=== PATIENT | male | born 1935 | race Caucasian/White ===

== ENCOUNTER 2019-10-23 15:08 | Inpatient (IN) | payer OTHER ==
--- NOTE | 2019-10-23 16:33 | NUR ---
PLACED ON NRB AT THIS TIME
[2019-10-23 16:57] LABS: HEMATOCRIT 31.4 % (38.2-49.6); HEMOGLOBIN 10.2 g/dL (14.0-18.0); LYMPHOCYTES # (AUTO) 0.4 (1.0-3.2); LYMPHOCYTES % 10.9 % (18.0-39.1); MEAN CORPUSCULAR HEMOGLOBIN 31.9 pg (28-32); MEAN CORPUSCULAR HGB CONC 32.5 g/dL (31-35); MEAN CORPUSCULAR VOLUME 98.1 fL (81-99); MONOCYTES # (AUTO) 0.2 (0.2-0.8); MONOCYTES % 4.8 % (4.4-11.3); NEUTROPHILS # (AUTO) 2.8 (2.1-6.9); NEUTROPHILS % 83.7 % (38.7-80.0); RED CELL DISTRIBUTION WIDTH 16.6 % (11.7-14.4)
[2019-10-23 16:59] LABS: PARTIAL THROMBOPLASTIN TIME 24.7 seconds (23.8-35.5)
[2019-10-23 17:02] LABS: INR 1.19; PROTHROMBIN TIME 15.8 seconds (11.9-14.5)
[2019-10-23 17:05] LABS: PLATELET COUNT 38 x10e3/uL (140-360)
[2019-10-23 17:09] LABS: ALBUMIN 3.4 g/dL (3.5-5.0); ALBUMIN/GLOBULIN RATIO 0.8 (0.8-2.0); ANION GAP 20.3 mmol/L (8-16); CALCIUM 9.2 mg/dL (8.4-10.2); CREATININE, SERUM 2.42 mg/dL (0.72-1.25); POTASSIUM 4.3 mmol/L (3.5-5.1)
--- NOTE | 2019-10-23 17:10 | Emergency Department Note ---
History of Present Illnes History of Present Illness Chief Complaint: Respiratory History of Present Illness This is a 84 year old male arrives to the ED with complaints of short ness of breath for several days, patient states he cannot speak in full sentences, also complaining of nausea and vomiting. . Historian: Patient Arrival Mode: Car Onset (how long ago): day(s) Severity: mild Onset quality: gradual Progression: worsening Chronicity: new Relieving factors: none Exacerbating factors: none Treatments prior to arrival: none Past Medical/Family History Physician Review I have reviewed the patient's past medical and family history. Any updates have been documented here. Past Medical History Recent Fever: No Clinical Suspicion of Infectio: Yes New/Unexplained Change in Ment: No Past Medical History: Hypertension Other Surgery: eyes rebuilt shoulder hip x 2 Social History Smoking Cessation: Never Smoker Counseling Performed: No Alcohol Use: None Any Illegal Drug Use: No Physically hurt or threatened: No Other Any Pre-Existing Lines (PICC,: No Review of Systems Review of Systems Constitutional: Reports as per HPI, Reports fever, Reports malaise, Reports weakness EENTM: Reports no symptoms Cardiovascular: Reports no symptoms Respiratory: Reports as per HPI, Reports cough Gastrointestinal: Reports no symptoms Genitourinary: Reports no symptoms Musculoskeletal: Reports no symptoms Integumentary: Reports no symptoms Neurological: Reports no symptoms Psychological: Reports no symptoms Endocrine: Reports no symptoms Hematological/Lymphatic: Reports no symptoms Review of other systems: All other systems negative Physical Exam Related Data Allergies: Coded Allergies: Penicillins (Verified Allergy, Unknown, 10/23/19) Triage Vital Signs Vital Signs Date Time Temp Pulse Resp B/P (MAP) Pulse Ox O2 Delivery O2 Flow Rate FiO2 10/23/19 15:41 98.2 104 28 98/64 91 Room Air Vital signs reviewed: Yes Physical Exam CONSTITUTIONAL Constitutional: Present well-developed, Present well-nourished, Present ill appearing HENT HENT: Present normocephalic, Present atraumatic, Present oropharynx clear/moist, Present nose normal HENT L/R: Present left ext ear normal, Present right ext ear normal EYES Eyes: Reports PERRL, Reports conjunctivae normal NECK Neck: Present ROM normal PULMONARY Pulmonary: Present respiratory distress CARDIOVASCULAR Cardiovascular: Present regular rhythm, Present heart sounds normal, Present capillary refill normal, Present normal rate GASTROINTESTINAL Abdominal: Present soft, Present nontender, Present bowel sounds normal GENITOURINARY Genitourinary: Present exam deferred SKIN Skin: Present warm, Present dry MUSCULOSKELETAL Musculoskeletal: Present ROM normal NEUROLOGICAL Neurological: Present alert, Present oriented x 3, Present no gross motor or sensory deficits PSYCHOLOGICAL Psychological: Present mood/affect normal, Present judgement normal Results Laboratory Laboratory Laboratory Tests Test 10/23/19 15:53 Lab results reviewed: Yes Laboratory comments Laboratory Tests Test 10/24/19 06:23 10/24/19 05:48 10/24/19 05:20 10/24/19 00:40 Urine Color Yellow (YELLOW) Urine Clarity Clear (CLEAR) Urine pH 5 (5 - 7) Urine Specific [place] 1.025 (1.010-1.025) Urine Protein 2+ (NEGATIVE) Urine Glucose (UA) Negative (NEGATIVE) Urine Ketones Trace (NEGATIVE) Urine Blood Negative (NEGATIVE) Urine Nitrite Negative (NEGATIVE) Urine Bilirubin Negative (NEGATIVE) Urine Urobilinogen 0.2 mg/dL (0.2 - 1) Urine Leukocyte Esterase Negative (NEGATIVE) Urine RBC 0-5 /HPF (0-5) Urine WBC 0-5 /HPF (0-5) Urine Epithelial Cells Few /LPF (NONE) Urine Transitional Epithelial Cells Rare (NONE) Urine Amorphous Sediment Few (FEW) Urine Bacteria Moderate /HPF (NONE) Urine Hyaline Casts 2-5 (0-1) White Blood Count 4.25 x10e3/uL (4.8-10.8) Red Blood Count 3.15 x10e6/uL (4.3-5.7) Hemoglobin 10.3 g/dL (14.0-18.0) Hematocrit 31.1 % (38.2-49.6) Mean Corpuscular Volume 98.7 fL (81-99) Mean Corpuscular Hemoglobin 32.7 pg (28-32) Mean Corpuscular Hemoglobin Concent 33.1 g/dL (31-35) Red Cell Distribution Width 16.4 % (11.7-14.4) Platelet Count 41 x10e3/uL (140-360) Neutrophils (%) (Auto) 65.9 % (38.7-80.0) Lymphocytes (%) (Auto) 28.0 % (18.0-39.1) Monocytes (%) (Auto) 4.7 % (4.4-11.3) Eosinophils (%) (Auto) 0.0 % (0.0-6.0) Basophils (%) (Auto) 0.2 % (0.0-1.0) Neutrophils # (Auto) 2.8 (2.1-6.9) Lymphocytes # (Auto) 1.2 (1.0-3.2) Monocytes # (Auto) 0.2 (0.2-0.8) Eosinophils # (Auto) 0.0 (0.0-0.4) Basophils # (Auto) 0.0 (0.0-0.1) Absolute Immature Granulocyte (auto 0.05 x10e3/uL (0-0.1) Platelet Estimate Markedly decreased Platelet Morphology Comment Normal Polychromasia Few Anisocytosis Slight Tear Drop Cells Few Ovalocytes Moderate Schistocytes Rare Red Cell Morphology Comment Abnormal Sodium Level 143 mmol/L (136-145) Potassium Level 4.4 mmol/L (3.5-5.1) Chloride Level 111 mmol/L (98-107) Carbon Dioxide Level 16 mmol/L (22-29) Anion Gap 20.4 mmol/L (8-16) Blood Urea Nitrogen 53 mg/dL (7-26) Creatinine 2.77 mg/dL (0.72-1.25) Estimat Glomerular Filtration Rate 22 ML/MIN (60-) BUN/Creatinine Ratio 19 (6-25) Glucose Level 109 mg/dL (74-118) Calcium Level 8.9 mg/dL (8.4-10.2) Total Bilirubin 1.4 mg/dL (0.2-1.2) Aspartate Amino Transf (AST/SGOT) 200 IU/L (5-34) Alanine Aminotransferase (ALT/SGPT) 59 IU/L (0-55) Alkaline Phosphatase 59 IU/L (40-150) Total Protein 7.3 g/dL (6.5-8.1) Albumin 3.3 g/dL (3.5-5.0) Globulin 4.0 g/dL (2.3-3.5) Albumin/Globulin Ratio 0.8 (0.8-2.0) Triglycerides Level 65 MG/DL (0-149) Cholesterol Level 116 MD/DL (0-199) LDL Cholesterol 62 MG/DL (60-130) HDL Cholesterol 41 MG/DL (40-60) Cholesterol/HDL Ratio 2.8 (3.9-4.7) Arterial Blood pH 7.48 (7.35-7.45) Arterial Blood Partial Pressure CO2 21 mmHg (35-45) Arterial Blood Partial Pressure O2 49 mmHg (80-105) Arterial Blood HCO3 15 mmol/L (22-26) Arterial Blood Total CO2 16 Arterial Blood Oxygen Saturation 88.0 % (95-98) Arterial Blood Base Excess -8.0 mmol/L (-2 - 3) FiO2 100 % Creatine Kinase 1012 IU/L (30-200) Creatine Kinase MB 86.40 ng/mL (0-5.0) Troponin I 76.338 ng/mL (0-0.300) Imaging Imaging results reviewed: Yes Procedures 12 Lead ECG Interpretation ECG Interpretation : ECG: ECG 1 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 Patient admitted given his need for supplemental oxygen, noted to have thrombocytopenia, per patient this is an old finding. Patient also noted to have marked elevated troponin, EKG does not show any ST elevations, cardiology consult did for further workup and management. Patient required admission to ICU for closer monitoring. Assessment & Plan Final Impression: (1) Acute respiratory failure due to COVID-19 (2) NSTEMI (non-ST elevated myocardial infarction) Depart Disposition: ADMITTED Last Vital Signs Date Time Temp Pulse Resp B/P (MAP) Pulse Ox O2 Delivery O2 Flow Rate FiO2 10/23/19 16:41 97.8 102 21 93/66 95 Non-Rebreather MIGUEL BOYD, Oct 23, 2019 17:10
[2019-10-23 17:17] LABS: CREATINE KINASE MB 115.9 ng/mL (0-5.0)
--- NOTE | 2019-10-23 17:36 | Diagnostic Imaging Report ---
EXAMINATION: CHEST SINGLE (PORTABLE) INDICATION: Shortness of breath. COMPARISON: None FINDINGS: TUBES and LINES: None. LUNGS: There is prominent interstitial lung markings throughout the lungs particularly at the bases and superimposed bibasilar hazy opacification. PLEURA: There is probable small bilateral pleural effusion. HEART AND MEDIASTINUM: The heart is enlarged. The thoracic aortic arch appears tortuous and ectatic with atherosclerotic calcification. BONES AND SOFT TISSUES: No acute osseous lesion. Suture anchors are seen in the left humeral head. Soft tissues are unremarkable. UPPER ABDOMEN: No free air under the diaphragm. IMPRESSION: 1. Cardiomegaly with interstitial pulmonary edema. Superimposed infection in the lung bases cannot be excluded. 2. Tortuous and ectatic thoracic aorta with atherosclerotic calcification. Signed by: Bernabe Mace MD on 10/23/2019 5:33 PM
[2019-10-23] MEDS ORDERED: ASPIRIN 81 MG CHEW TAB PO ONE (18:00)
[2019-10-23] MEDS: FUROSEMIDE INJ 10 MG/ML 4 ML VIAL IV SCH (18:41)
[2019-10-23] MEDS ORDERED: ENOXAPARIN SOD INJ 60 MG/0.6 ML SYR SC NR ×2 (19:00→20:30)
--- NOTE | 2019-10-23 23:33 | Consultation ---
DATE OF CONSULTATION: Cardiology Consultation CHIEF COMPLAINT: The patient is an 84-year-old with shortness of breath and chest tightness. HISTORY OF PRESENT ILLNESS: The patient is an 84-year-old, who reported chest pain several days ago and since then, he has been short of breath. The shortness of breath has been getting worse. The patient has had no fevers, no nausea, no vomiting, no abdominal pain. PAST MEDICAL HISTORY: Significant for: 1. Total hip replacement. 2. Shoulder surgery. 3. Hypertension. SOCIAL HISTORY: The patient never smoked. The patient does not drink. FAMILY HISTORY: There is a known family history of hypertension and heart disease. PHYSICAL EXAMINATION: GENERAL: The patient is an older male, in no obvious distress. VITAL SIGNS: Included temperature of 97.8, pulse of 102, blood pressure was 100/60. HEAD, EARS, EYES, NOSE, AND THROAT: The patient's cranium was normocephalic and atraumatic. Extraocular muscles were intact. Sclerae were anicteric. Pupils were equal, round, and reactive to light. There is no pallor or cyanosis of the oral mucosa. There is no erythema or edema of the throat. NECK: Supple. No jugular venous distention. No carotid bruits. CHEST: Demonstrated rales and rhonchi bilaterally. CARDIAC: Demonstrated normal S1 and S2 with a short 2/6 systolic murmur. ABDOMEN: Demonstrated good bowel sounds. No tenderness and no masses. EXTREMITIES: No clubbing, no cyanosis, and no edema. NEUROLOGIC: The patient was alert and oriented x3. Cranial nerves II through XII were intact. Motor strength was +5/+5 in all limbs. IMAGING STUDIES: The patient's EKG demonstrated atrial flutter with 2:1 block and anterior wall myocardial infarction of undetermined age. IMPRESSION: The patient is an 84-year-old with new onset congestive heart failure and myocardial infarction. The patient has a troponin level of 33, consistent with recent myocardial infarction within the last several days. RECOMMENDATIONS: Are as follows: 1. The patient will need to be diuresed with IV Lasix. 2. The patient will need to be started on beta-blockers and KENDRICK inhibitors. 3. The patient will be anticoagulated with Lovenox. 4. An echocardiogram with Doppler has been ordered. 5. The patient will require left heart catheterization. MD OMAR Garcia/MARISA /[id number] cc: Marty Griffin MD
[2019-10-24] VITALS (13 sets, daily range): BP systolic 80–108; BP diastolic 46–69
--- NOTE | 2019-10-24 00:52 | NUR ---
Elias pineda in ED - 10/24/19 at 0057 by CHAITANYA REPORT RECIEVED AT THIS MOMENT FROM JUHI JULES-ASSUMED FULL CARE OF PATIENT
--- NOTE | 2019-10-24 00:58 | NUR ---
REPORT RECIEVED FROM JUHI IN FULL AT THIS MOMENT.
[2019-10-24 01:26] LABS: CREATINE KINASE MB 86.4 ng/mL (0-5.0)
--- NOTE | 2019-10-24 01:43 | NUR ---
ZULEYMA LASSITER RN NOTIFIED OF TROPONIN AND PATIENTS CONDITION, NO NEW ORDERS AT THIS TIME.
--- NOTE | 2019-10-24 05:04 | NUR ---
NIKKI HERMOSILLO MD NOTIFIED OF DECREASING O2 SATURATION, ABG WAS ORDERED ALONG WITH VAPOTHERM
[2019-10-24 06:01] LABS: BASOPHILS % 0.2 % (0.0-1.0); HEMATOCRIT 31.1 % (38.2-49.6); HEMOGLOBIN 10.3 g/dL (14.0-18.0); LYMPHOCYTES # (AUTO) 1.2 (1.0-3.2); MEAN CORPUSCULAR HEMOGLOBIN 32.7 pg (28-32); MEAN CORPUSCULAR HGB CONC 33.1 g/dL (31-35); MEAN CORPUSCULAR VOLUME 98.7 fL (81-99); MONOCYTES # (AUTO) 0.2 (0.2-0.8); MONOCYTES % 4.7 % (4.4-11.3); NEUTROPHILS # (AUTO) 2.8 (2.1-6.9); NEUTROPHILS % 65.9 % (38.7-80.0); RED BLOOD COUNT 3.15 x10e6/uL (4.3-5.7); RED CELL DISTRIBUTION WIDTH 16.4 % (11.7-14.4)
[2019-10-24 06:21] LABS: PLATELET COUNT 41 x10e3/uL (140-360)
[2019-10-24 06:22] LABS: ABG PCO2 21 mmHg (35-45); ABG PH 7.48 (7.35-7.45)
[2019-10-24 06:23] LABS: ABG HCO3 15 mmol/L (22-26); ABG PO2 49 mmHg (80-105); ABG TCO2 16
[2019-10-24 06:28] LABS: ALBUMIN 3.3 g/dL (3.5-5.0); ALBUMIN/GLOBULIN RATIO 0.8 (0.8-2.0); ANION GAP 20.4 mmol/L (8-16); CALCIUM 8.9 mg/dL (8.4-10.2); CREATININE, SERUM 2.77 mg/dL (0.72-1.25); POTASSIUM 4.4 mmol/L (3.5-5.1)
[2019-10-24 06:42] LABS: BILIRUBIN,URINE NEGATIVE (NEGATIVE); CLARITY,URINE CLEAR (CLEAR); COLOR,URINE YELLOW (YELLOW); KETONES,URINE TRACE (NEGATIVE); LEUKOCYTE ESTERASE ,URINE NEGATIVE (NEGATIVE); NITRITE,URINE NEGATIVE (NEGATIVE); PROTEIN,URINE DIPSTICK 2+ (NEGATIVE); URINE UROBILINOGEN 0.2 mg/dL (0.2 - 1)
--- NOTE | 2019-10-24 06:51 | NUR ---
DR ESPINAL INFORMED OF CONSULT
[2019-10-24 06:52] LABS: AMORPHOUS SEDIMENT,URINE FEW (FEW); BACTERIA,URINE MODERATE /HPF; EPITHELIAL CELLS,URINE FEW /LPF; RBC,URINE 0-5 /HPF (0-5); TRANSITIONAL EPI CELLS,URINE RARE; WBC,URINE (MAN) 0-5 /HPF (0-5)
[2019-10-24 06:54] LABS: CHOL/HDL RATIO 2.8 (3.9-4.7)
[2019-10-24 06:55] LABS: ANISOCYTOSIS SLIGHT
[2019-10-24 06:56] LABS: PLATELET ESTIMATE MARKEDLY DECREASED; PLATELET MORPHOLOGY COMMENT NORMAL; RBC MORPHOLOGY COMMENT ABNORMAL
[2019-10-24 06:57] LABS: OVALOCYTES MODERATE
[2019-10-24 06:58] LABS: TEAR DROP CELLS FEW
[2019-10-24 06:59] LABS: POLYCHROMASIA FEW
--- NOTE | 2019-10-24 06:59 | NUR ---
WALKING ROUNDS WITH MAYANK JULES
[2019-10-24 07:01] LABS: SCHISTOCYTES RARE
--- NOTE | 2019-10-24 07:05 | NUR ---
DR GUNN PAGED REGARDING PLT COUNT
[2019-10-24] MEDS ORDERED: AMIODARONE HCL 900 MG in DEXTROSE 5% 500ML 500 ML IV SCH (08:15)
[2019-10-24] MEDS ORDERED: AMIODARONE HCL 150MG 100 ML IV ONE (08:15)
[2019-10-24] MEDS: FUROSEMIDE INJ 10 MG/ML 4 ML VIAL IV SCH ×2 (08:45→21:00)
[2019-10-24] MEDS ORDERED: AMIODARONE HCL 360MG 200 ML IV SCH (08:45)
--- NOTE | 2019-10-24 08:53 | NUR ---
GONZALES, REFRIGERATION SERVICE TECHNICIAN AT BEDSIDE PREPPING PATIENT FOR PROCEDURE
[2019-10-24] MEDS ORDERED: LISINOPRIL 2.5 MG TAB PO SCH (09:00)
[2019-10-24] MEDS: METOPROLOL TARTRATE 25 MG TAB PO SCH ×2 (09:05→17:00)
[2019-10-24] MEDS: AMIODARONE HCL 360MG 200 ML IV SCH ×2 (10:14→22:10)
--- NOTE | 2019-10-24 10:14 | NUR ---
DOMITILA NGUYEN PROTECTIVE SIGNAL OPERATOR, FOR DR. Cruz HERMOSILLO AT BEDSIDE EVALUATING PATIENT. C/O OF LEFT SIDE CHEST PAIN, BUT ALSO STATES HE GETS PAIN IN THAT AREA FROM TRACTOR ACCIDENT. PATIENT GIVEN NITRO SL 0.4. SHE IS ALSO AWARE PATIENT WAS GIVEN AMIO GTT BOLUS THEN STARTED ON CONTINOUS 33CC/HR AND BP DROPPED TO 82/59, HR 97. ORDERED TO DROP AMIO DRIP TO 16CC/HR
[2019-10-24] MEDS ORDERED: NITROGLYCERIN 0.4 MG SUBL ONE (10:23)
--- NOTE | 2019-10-24 10:24 | NUR ---
DOMITILA NGUYEN NP CALLED [employer] [employer] FOR DR. Tiny HERMOSILLO. THEY ARE REQUESTING PATIENT GO TO [facility] IMMEDIATELY
[2019-10-24] MEDS ORDERED: NITROGLYCERIN 0.4 MG SUBL SL ONE (10:30)
[2019-10-24] MEDS ORDERED: LIDOCAINE HCL 2% LOCAL 20 ML VIAL ONE (10:34)
[2019-10-24] MEDS ORDERED: IOPAMIDOL 370 MG/ML 200 ML INFUS..BTL INJ ONE (10:34)
[2019-10-24] MEDS ORDERED: HEPARIN SOD (PORCINE) 1000 UNIT/ML 30ML ONE (10:34)
[2019-10-24] MEDS ORDERED: HEPARIN SOD/SOD CHLORIDE 2,000 ML ONE (10:34)
[2019-10-24] MEDS ORDERED: NITROGLYCERIN/D5W 200 MCG/ML 250 ML ONE (10:35)
[2019-10-24] MEDS ORDERED: MIDAZOLAM HCL 2 MG/2 ML VIAL ONE (10:35)
[2019-10-24] MEDS ORDERED: FENTANYL CITRATE/PF 100MCG/2 ML INJ ONE (10:36)
[2019-10-24] MEDS ORDERED: SODIUM CHLORIDE 0.9% 1000ML 1,000 ML ONE ×2 (11:26→11:55)
--- NOTE | 2019-10-24 11:29 | History and Physical ---
PRIMARY CARE PHYSICIAN: Dr. Marty Griffin. CONSULTANTS: 1. Dr. Tadeo Romero. 2. Dr. Javid Romero. CHIEF COMPLAINT: Acute OR. HISTORY OF PRESENT ILLNESS: The patient is an 84-year-old male, who came to the hospital with basically an acute OR. Troponin I is 33. The patient is having increasing shortness of breath and chest tightness. The patient has a chest problem including chest tightness and pain for the past few days and subsequently developed short of breath, which brought the patient to the hospital. He had no fever. No nausea or vomiting. No abdominal pain. The patient has baseline COPD with asthma, stable. He go to the [facility] to get his medical care. The patient is in congestive heart failure. He is pending for cardiac catheterization. PAST MEDICAL HISTORY: COPD, hypertension, osteoarthritis with shoulder surgery, total hip replacement, and history of asthma. MEDICATIONS: At home is not available. PAST SURGICAL HISTORY: Hip surgery x2, shoulder surgery, and eye surgery. SOCIAL HISTORY: The patient is an ex-smoker. No alcohol consumption. No regular drug. ALLERGIES: TO PENICILLIN. HOME MEDICATIONS: Not yet available. PHYSICAL EXAMINATION: VITAL SIGNS: Temperature is 98, blood pressure 89/64, pulse rate is 102, respirations 22. The patient is on high-flow oxygen support. HEENT: Normocephalic and atraumatic. Anicteric. NECK: Supple grossly. PULMONARY: Diminished breath sounds bilaterally with rales at the bases. CARDIOVASCULAR: S1, S2. Tachycardia. ABDOMEN: Soft. EXTREMITIES: No cyanosis or edema. NEUROLOGIC: No focal deficit. LABORATORY DATA: WBC is 3.3, hemoglobin 10.2, hematocrit 31.4, and platelet is 41,000. Chemistry; sodium is 143, potassium 4.4, chloride 111, bicarb 16, BUN is 53 and creatinine 2.7, glucose is 109. Troponin I is 33 and 2nd set is 76. CK-MB was 115 and 2nd test 86, AST 200, ALT 99. Chest x-ray is pulmonary edema, cardiomegaly. IMPRESSION: 1. Acute myocardial infarction. 2. Pulmonary edema, acute. 3. Chronic kidney disease, possible going to the kidney failure. 4. Chronic anemia. PLAN: The patient will need cardiac catheterization in light of his chronic kidney failure. The patient has acute OR. The patient is on amiodarone IV. He is on aspirin, Lovenox, IV furosemide and metoprolol and nitroglycerin x1. We will repeat the patient's lab work. Watch renal function. Obtain renal ultrasound. Echocardiogram ordered. Renal consultation with Dr. Gamal Davidson. We will watch the platelet. The patient will have a cardiac catheterization today. MD GAYATRI Nova/MARISA /[id number]
[2019-10-24 11:35] LABS: CREATINE KINASE MB 50.6 ng/mL (0-5.0)
[2019-10-24] MEDS ORDERED: SODIUM CHLORIDE 0.9% 50ML 0 ML ONE (11:46)
[2019-10-24] MEDS ORDERED: BIVALRIUDIN 250 MG/VIAL VIAL IV ONE (11:46)
--- NOTE | 2019-10-24 11:50 | NUR ---
1150a Critical lab results received from lab reported to Josh JULES CCL Nurse currently in procedure with paper lab report copy given to CCLteam. Dr Romero will be informed by staff. rachna/odell
--- NOTE | 2019-10-24 11:53 | NUR ---
1153 pt has recieved bed assignment to ICU 189 per CCL Vamsi Parker. ds/rn
[2019-10-24] MEDS ORDERED: HEPARIN 25,000U/0.45% NS 250ML 250 ML IV ONE (12:07)
--- NOTE | 2019-10-24 13:35 | Operative Report ---
DATE OF PROCEDURE: 10/24/2019 SURGEON: Javid Romero MD PREOPERATIVE DIAGNOSES: 1. Acute anterior wall myocardial infarction. 2. Cardiogenic shock. POSTOPERATIVE DIAGNOSES: 1. Acute anterior wall myocardial infarction. 2. Cardiogenic shock. PROCEDURES: 1. Left heart catheterization. 2. Insertion of intra-aortic balloon pump. COMPLICATIONS: None. MANAGER SEMICONDUCTOR: None. TECHNIQUE: The right groin was draped and prepped in the usual fashion. The area was anesthetized with lidocaine. Standard Seldinger technique was used to place a 6-Swedish sheath into the right femoral artery without difficulty. A JL4 catheter was used to selectively engage the left coronary artery. A 3DRC catheter was used to selectively engage the right coronary artery. The left ventriculogram was not done due to the elevated creatinine. The existing 6-Swedish sheath was exchanged over a guidewire for an 8-Swedish sheath and an intra-aortic balloon pump was inserted without complication. RESULTS: As follows: 1. There is diffuse calcification of the left main trunk. 2. There is a large left anterior descending artery, which was 100% occluded proximally and filled distally by collaterals. 3. There was a medium-sized AV circumflex artery, which gave rise to a large bifurcating obtuse marginal branch was 80% stenosis at the bifurcation of the obtuse marginal branch in the AV circumflex artery. The distal AV circumflex artery was 100% occluded. 4. There was a large dominant right coronary artery with about a 60% to 70% stenosis in the mid vessel and 100% occlusion of the distal vessel. 5. The left ventriculogram was not done due to the elevated creatinine. CONCLUSION: The patient has severe 3-vessel coronary artery disease and will require surgical evaluation. An intra-aortic balloon pump was placed. Javid Romero MD [facility]/MOD[facility] /[id number] cc: Asaf Batista MD
--- NOTE | 2019-10-24 16:49 | NUR ---
consult note The patient is an 84-year-old male, who came to the hospital with basically an acute NV. Troponin I is 33. The patient is having increasing shortness of breath and chest tightness. The patient has a chest problem including chest tightness and pain for the past few days and subsequently developed short of breath, which brought the patient to the hospital. He had no fever. No nausea or vomiting. No abdominal pain. The patient has baseline COPD with asthma, stable. He go to the [facility] to get his medical care. The patient is in congestive heart failure. He is pending for cardiac catheterization. This is an 84-year-old male, who came into the emergency room with complaints of underlying shortness of breath and chest tightness, found to have an elevated troponin of 33, prompting Cardiology evaluation. Nephrology was consulted and involved due to the patient's underlying acute kidney injury and possibly CKD. The patient is a very poor historian. He apparently gets his care at the [facility]. We do not have any other records to compare with any other creatinines. No reports of any [id number] medications, no herbal supplements, no NSAIDs. No history of urinary tract infections or any chronic obstructions. The patient was seen and evaluated at bedside on the medical floor. Post cardiac cath is currently stable with no other issues at this time. I spoke with the healthcare market consultant and since the patient does need a cath emergently and he does arrive underlying renal failure, it was best that he undergoes the heart catheterization and get his PCI and we can work with his renal function after the procedure. REVIEW OF SYSTEMS: Pertinent positive chest pain. The rest of 14-point review of systems have been reviewed with the patient and are negative. ALLERGIES: PENICILLINS. HOME MEDICATIONS: None. PAST MEDICAL HISTORY: None. PAST SURGICAL HISTORY: Unknown. FAMILY HISTORY: Hypertension and diabetes. SOCIAL HISTORY: No drugs. No alcohol. Does not smoke. Good social support. PHYSICAL EXAMINATION: VITAL SIGNS: Temperature is 97.5, pulse 104, respiratory rate is 27, his blood pressure recorded at 100/58, pulse ox is 92%. He is on high-flow nasal cannula. GENERAL: Not in acute distress. He is alert, awake, and oriented. CARDIOVASCULAR: Positive S1 and S2. No murmurs, rubs, or gallops appreciated. PULMONARY: Clear to auscultation bilaterally. No wheezing, rales, or rhonchi. No crackles appreciated. ABDOMEN: Soft, nondistended, and nontender to palpation. Bowel sounds present. MUSCULOSKELETAL: Strength 5/5 throughout. No evidence of any muscle deficits on examination. No weakness appreciated. NEUROLOGIC: Cranial nerves II through XII grossly intact. No evidence of any neurological deficits on exam. SKIN: Intact. Warm to touch. Good cap refill. PSYCHIATRIC: Normal affect and mood. EXTREMITIES: No edema. Good range of motion throughout. LABORATORY DATA: Labs show white count of 4.6, hemoglobin 9.8, hematocrit 29.8, platelets was 39. Coagulation; PT is 18, INR 1.4, PTT 58.7. Chemistry; sodium 143, potassium is 4.4, chloride 101, bicarb is 16, anion gap of 20, BUN is 53 and creatinine is 2.77. Glucose is 109, calcium 8.9, total bilirubin was 1.4, AST 200, ALT 59. His troponin peaked to 76. BNP is 3032. Albumin is 3.3, LDL 62. Coronavirus not detected. IMAGING STUDIES: Renal ultrasound showed right kidney 10.9 cm, left kidney 10.5 cm, hypoechoic lesions in the bilateral kidneys, which likely represent cyst. No hydronephrosis. No solid masses. No reports of any chronic medical renal disease. 1. Acute myocardial infarction with cardiogenic shock. 2. Acute systolic congestive heart failure. 3. Coronary artery disease. 4. Acute renal failure secondary to hypoperfusion. 5. Chronic thrombocytopenia and anemia secondary to unclear hematologic disorder.
--- NOTE | 2019-10-24 17:30 | Consultation ---
DATE OF CONSULTATION: Pulmonary Critical Care Consultation CHIEF COMPLAINT: Pulmonary edema and respiratory failure. HISTORY OF PRESENT ILLNESS: The patient is an 84-year-old man. He came to the hospital complaining of dyspnea and chest tightness. His chest x-ray showed infiltrates. He was subsequently ruled out for COVID. He also had elevated troponins and changes on the EKG suggestive of myocardial infarction. The patient received Lasix. He went to the medical lab technologist today. He had anterior wall AL as well as diffuse coronary artery disease. He now has intra-aortic balloon pump and is awaiting evaluation by Cardiovascular Surgery. PAST SURGICAL HISTORY: 1. Status post hip surgery x2. 2. Status post shoulder surgery. 3. History of eye surgery. PAST MEDICAL HISTORY: 1. Coronary artery disease. 2. Hypertension. 3. Osteoarthritis. SOCIAL HISTORY: The patient was a prior smoker. He is not an active drinker. ALLERGIES: PENICILLIN. FAMILY HISTORY: Noncontributory. REVIEW OF SYSTEMS: The patient has no fever. He did not have headache. He has no neck pain. He did have some dyspnea and some anterior chest pain. He has no nausea or vomiting. PHYSICAL EXAMINATION: VITAL SIGNS: The patient is now breathing 25 to 30 times a minute and is on a Vapotherm. He is saturating 100%. His blood pressure is 90/60 and his intra-aortic balloon pump in place. HEENT: Shows no facial swelling or erythema. LYMPHATIC: Shows no submandibular, cervical or supraclavicular adenopathy. CARDIAC: Reveals regular rate and rhythm with normal S1 and S2. LUNGS: Auscultation of lungs reveals crackles at the bases. There is no wheezing. ABDOMEN: Soft and nontender. There is no rebound or guarding. EXTREMITIES: Shows no leg edema or calf tenderness. RADIOGRAPHIC DATA: Chest x-ray shows cardiomegaly with interstitial edema. LABORATORY DATA: COVID-19 test is negative. BUN to creatinine ratio is 53 to 2.77 and the CO2 is 16. Troponin I is elevated at 76 and the BNP is 3032. Platelet count is 41 and hemoglobin is 10.3. IMPRESSION: 1. Acute myocardial infarction with cardiogenic shock. 2. Acute systolic congestive heart failure. 3. Coronary artery disease. 4. Acute renal failure secondary to hypoperfusion. 5. Chronic thrombocytopenia and anemia secondary to unclear hematologic disorder. PLAN: 1. Await evaluation by Cardiothoracic Surgery. 2. Continue diuretics. 3. Continue to monitor platelets. 4. Continue intra-aortic balloon pump. MD AYSE Minor/MARISA /[id number]
--- NOTE | 2019-10-24 20:01 | Consultation ---
DATE OF CONSULTATION: REASON FOR CONSULTATION: Coronary artery disease, ST-elevation myocardial infarction-requested by Dr. Javid Romero. Communications Planner is Dr. Marty Griffin and hospitalist is Dr. Asaf Batista. Osteopathy Doctor Dr. Tadeo Romero. HISTORY OF PRESENT ILLNESS: I saw and evaluated this patient on October 24, 2019. He is an 84-year-old man who was admitted to the hospital with chest pain. Troponins were elevated and have peaked at approximately 33. He was also having some associated shortness of breath. COVID-19 testing has been negative. Cardiac catheterization has revealed severe three-vessel CAD. Films are not available for review this evening. He had an intra-aortic balloon pump placed in the catheterization laboratory. Chest pain has resolved. Currently, he is comfortable and breathing without difficulty in the ICU. No fevers or chills. He is being given diuretics for fluid overload. There is no history of previous myocardial infarction. The patient never smoked. No history of previous myocardial infarction. Denies TIA or stroke. PAST MEDICAL HISTORY: Positive for COPD, hypertension, osteoarthritis, total hip replacement, and a history of asthma. MEDICATIONS: See MAY. ALLERGIES: PENICILLIN. PAST SURGICAL HISTORY: Positive for hip surgery, shoulder surgery and eye surgery. SOCIAL HISTORY: The patient does not smoke. No alcohol. No IV drugs. He lives by himself. REVIEW OF SYSTEMS: GENERAL: Positive for fatigue and malaise. NEUROLOGIC: Negative for focal weakness in the extremities or dysarthria. HEENT: Negative for decreased vision or decreased hearing. CARDIAC: Positive for palpitations. The patient was in atrial flutter on presentation to the hospital. PULMONARY: Positive for shortness of breath. Positive for wheezing. GI: No constipation or diarrhea. : Negative for hematuria or dysuria. ENDOCRINE: Negative for polyuria or polydipsia. VASCULAR: Negative for claudication. SKIN: Negative for rashes or itching. HEMATOLOGIC: Negative for clotting or bleeding. INFECTIOUS: Negative for fevers or sweating. PSYCHIATRIC: Negative for depression or anxiety. PHYSICAL EXAMINATION: GENERAL: Older man lying flat in bed in the ICU with an intra-aortic balloon pump in place. VITAL SIGNS: Blood pressure 140/70, pulse 75 and regular, respirations 16 and unlabored. NECK: Supple. Nontender. No JVD. CARDIAC: Shows a regular rate and rhythm. There is a normal S1 and S2. There is no S3, S4, rub, or murmur. LUNGS: Scattered crackles. Intra-aortic balloon pump is audible. ABDOMEN: Globally benign. Good bowel sounds. No hepatosplenomegaly. BACK: No CVA tenderness. No muscular spasm. EXTREMITIES: No cyanosis, clubbing, or edema. VASCULAR: Carotids 2+/2+ bilaterally. No carotid bruits. Radials 2+/2+ bilaterally. Femorals 2+/2+ bilaterally. On the left, DP and PT are 2+/2+. Right DP and PT, distal to the intra-aortic balloon pump are trace 2/2+. LABORATORY DATA: Cardiac catheterization to be reviewed when available. Sodium 143, potassium 4.4, BUN is 53, creatinine 2.77. CK-MB is 86.4. Troponin I peak 76.3, last troponin I was 58. Echocardiogram: Pending. IMPRESSION: Severe coronary artery disease status post ST-elevation myocardial infarction. The patient also has elevated creatinine and COPD. He is recovering from the OK. We will discuss with his other attendings. Thank you very much for asking me to see this nice man. MD CLAUDY Fuentes/MARIAS /[id number]
--- NOTE | 2019-10-24 20:48 | Diagnostic Imaging Report ---
EXAM: Renal Ultrasound INDICATION: Flank pain. COMPARISON: None TECHNIQUE: Transverse and longitudinal images of the kidneys and bladder were obtained. FINDINGS: Right Kidney: Size: 10.9 x 4.5 x 5.3 cm. The right renal cortex measures 1.6 cm. Echogenicity: Normal Parenchymal thickness: Normal Collecting system: No hydronephrosis Stones: None Cyst/Mass: There are two hypoechoic lesions in the right kidney which likely represent cysts and measure 2.3 x 2.5 x 2.6 cm and 2.4 x 2.2 x 2.0 cm. Left Kidney: Size: 10.5 x 5.0 x 4.0 cm. The left renal cortex measures 1.4 cm. Echogenicity: Normal Parenchymal thickness: Normal Collecting system: No hydronephrosis Stones: None Cyst/Mass: There is a hypoechoic lesion in the left kidney which measures 2.2 x 1.5 x 2.3 cm Bladder: There is a Mccray catheter in place. IMPRESSION: Hypoechoic lesions in the bilateral kidneys which likely represent cysts. No hydronephrosis. No solid renal masses. Signed by: Bernabe Mace MD on 10/24/2019 8:45 PM
[2019-10-24 21:36] LABS: BASOPHILS % 0.2 % (0.0-1.0); HEMATOCRIT 29.8 % (38.2-49.6); HEMOGLOBIN 9.8 g/dL (14.0-18.0); LYMPHOCYTES # (AUTO) 0.4 (1.0-3.2); LYMPHOCYTES % 7.7 % (18.0-39.1); MEAN CORPUSCULAR HEMOGLOBIN 31.5 pg (28-32); MEAN CORPUSCULAR HGB CONC 32.9 g/dL (31-35); MEAN CORPUSCULAR VOLUME 95.8 fL (81-99); MONOCYTES # (AUTO) 0.3 (0.2-0.8); MONOCYTES % 6.4 % (4.4-11.3); NEUTROPHILS # (AUTO) 3.9 (2.1-6.9); NEUTROPHILS % 83.3 % (38.7-80.0); RED BLOOD COUNT 3.11 x10e6/uL (4.3-5.7); RED CELL DISTRIBUTION WIDTH 16.7 % (11.7-14.4)
[2019-10-24 21:40] LABS: PLATELET COUNT 39 x10e3/uL (140-360)
[2019-10-24 21:41] LABS: INR 1.41; PROTHROMBIN TIME 18.1 seconds (11.9-14.5)
--- NOTE | 2019-10-24 23:13 | NUR ---
Dr. Javid Romero paged at this time due to hemodynamics of pt. Sys 70's with decreased augmented pressure via IABP. Verbal order to start Dopamine at this time to keep systolic > 80. Dr. Romero also made aware of decreased urine output at this time.
--- NOTE | 2019-10-24 23:36 | Consultation ---
DATE OF CONSULTATION: 10/24/2019 Nephrology Consultation REASON FOR CONSULTATION: Acute kidney injury, NSTEMI. HISTORY OF PRESENT ILLNESS: This is an 84-year-old male, who came into the emergency room with complaints of underlying shortness of breath and chest tightness, found to have an elevated troponin of 33, prompting Cardiology evaluation. Nephrology was consulted and involved due to the patient's underlying acute kidney injury and possibly CKD. The patient is a very poor historian. He apparently gets his care at the [facility]. We do not have any other records to compare with any other creatinines. No reports of any [id number] medications, no herbal supplements, no NSAIDs. No history of urinary tract infections or any chronic obstructions. The patient was seen and evaluated at bedside on the medical floor. Post cardiac cath is currently stable with no other issues at this time. I spoke with the sterilisation technician and since the patient does need a cath emergently and he does arrive underlying renal failure, it was best that he undergoes the heart catheterization and get his PCI and we can work with his renal function after the procedure. REVIEW OF SYSTEMS: Pertinent positive chest pain. The rest of 14-point review of systems have been reviewed with the patient and are negative. ALLERGIES: PENICILLINS. HOME MEDICATIONS: None. PAST MEDICAL HISTORY: None. PAST SURGICAL HISTORY: Unknown. FAMILY HISTORY: Hypertension and diabetes. SOCIAL HISTORY: No drugs. No alcohol. Does not smoke. Good social support. PHYSICAL EXAMINATION: VITAL SIGNS: Temperature is 97.5, pulse 104, respiratory rate is 27, his blood pressure recorded at 100/58, pulse ox is 92%. He is on high-flow nasal cannula. GENERAL: Not in acute distress. He is alert, awake, and oriented. CARDIOVASCULAR: Positive S1 and S2. No murmurs, rubs, or gallops appreciated. PULMONARY: Clear to auscultation bilaterally. No wheezing, rales, or rhonchi. No crackles appreciated. ABDOMEN: Soft, nondistended, and nontender to palpation. Bowel sounds present. MUSCULOSKELETAL: Strength 5/5 throughout. No evidence of any muscle deficits on examination. No weakness appreciated. NEUROLOGIC: Cranial nerves II through XII grossly intact. No evidence of any neurological deficits on exam. SKIN: Intact. Warm to touch. Good cap refill. PSYCHIATRIC: Normal affect and mood. EXTREMITIES: No edema. Good range of motion throughout. LABORATORY DATA: Labs show white count of 4.6, hemoglobin 9.8, hematocrit 29.8, platelets was 39. Coagulation; PT is 18, INR 1.4, PTT 58.7. Chemistry; sodium 143, potassium is 4.4, chloride 101, bicarb is 16, anion gap of 20, BUN is 53 and creatinine is 2.77. Glucose is 109, calcium 8.9, total bilirubin was 1.4, AST 200, ALT 59. His troponin peaked to 76. BNP is 3032. Albumin is 3.3, LDL 62. Coronavirus not detected. IMAGING STUDIES: Renal ultrasound showed right kidney 10.9 cm, left kidney 10.5 cm, hypoechoic lesions in the bilateral kidneys, which likely represent cyst. No hydronephrosis. No solid masses. No reports of any chronic medical renal disease. IMPRESSION: 1. Acute myocardial infarction with/ST-elevation myocardial infarction. 2. Acute kidney injury on chronic kidney disease, unknown stage. 3. Hypertension. PLAN: At this time, I had a discussion with the sterilisation technician in relation to this patient's acute kidney injury since the patient has a STEMI and an elevated troponin, heart catheterization is emergent. At this time, I would agree with a heart catheterization. I do not have his baseline creatinine at this time. The patient is severely ill. If he needs dialysis, surely we will provide dialysis after the heart catheterization. They have no objections to go ahead and proceed with a heart catheterization at this time. We will try to avoid all nephrotoxic agents. I suspect this patient has underlying chronic kidney disease due to his long-standing hypertension and likely CAD. I will continue with aggressive IV fluid hydration post catheterization to help with avoiding contrast-induced nephropathy. I would discontinue, though lisinopril. He does have also low platelets and he was given some heparin intraprocedurally. Otherwise, we will continue with same plan of care and monitor very closely. Get repeat labs in the morning. If his renal function deteriorates, he will need a temporary dialysis catheter and proceed with dialysis. He currently has an intra-aortic balloon pump in place. MD SUZI Khan/MARISA /[id number]
[2019-10-24] MEDS: SODIUM BICARBONATE 650 MG TAB PO SCH (23:51)
[2019-10-25] VITALS (25 sets, daily range): BP systolic 89–111; BP diastolic 43–65
[2019-10-25 04:21] LABS: BASOPHILS % 0.2 % (0.0-1.0); LYMPHOCYTES # (AUTO) 0.5 (1.0-3.2); LYMPHOCYTES % 9.6 % (18.0-39.1); MEAN CORPUSCULAR HEMOGLOBIN 31.4 pg (28-32); MEAN CORPUSCULAR HGB CONC 33.3 g/dL (31-35); MEAN CORPUSCULAR VOLUME 94.3 fL (81-99); MONOCYTES # (AUTO) 0.4 (0.2-0.8); MONOCYTES % 7.6 % (4.4-11.3); NEUTROPHILS % 81.2 % (38.7-80.0); RED BLOOD COUNT 3.18 x10e6/uL (4.3-5.7); RED CELL DISTRIBUTION WIDTH 16.4 % (11.7-14.4)
[2019-10-25 04:23] LABS: PLATELET COUNT 41 x10e3/uL (140-360)
[2019-10-25 04:47] LABS: ANION GAP 18.7 mmol/L (8-16); CALCIUM 8.9 mg/dL (8.4-10.2); CREATININE, SERUM 3.27 mg/dL (0.72-1.25); POTASSIUM 4.7 mmol/L (3.5-5.1)
--- NOTE | 2019-10-25 08:43 | Diagnostic Imaging Report ---
EXAMINATION: CHEST SINGLE (PORTABLE) INDICATION: Shortness of breath. COMPARISON: chest x-ray on 10/23/2019. FINDINGS: TUBES and LINES: None. LUNGS: There is worsening diffuse opacification of the right lung. Multifocal interstitial opacities of the left lung is unchanged. PLEURA: There is probable small left pleural effusion. HEART AND MEDIASTINUM: The cardiomediastinal silhouette is unchanged. BONES AND SOFT TISSUES: No acute osseous or soft tissue abnormality. UPPER ABDOMEN: No free air under the diaphragm. IMPRESSION: Cardiomegaly with pulmonary edema and worsening opacification of the right lung which may represent superimposed infection. Signed by: Bernabe Mace MD on 10/25/2019 8:40 AM
[2019-10-25] MEDS: METOPROLOL TARTRATE 25 MG TAB PO SCH ×2 (09:00→17:00)
[2019-10-25] MEDS: FUROSEMIDE INJ 10 MG/ML 4 ML VIAL IV SCH ×2 (09:00→21:00)
[2019-10-25] MEDS: AMIODARONE HCL 360MG 200 ML IV SCH (10:20)
[2019-10-25] MEDS: SODIUM BICARBONATE 650 MG TAB PO SCH ×3 (10:20→21:26)
[2019-10-25] MEDS: HEPARIN 25,000 UNIT 1,300 UNIT in DEXTROSE 5% 250ML 250 ML IV SCH (15:00)
[2019-10-25 16:35] LABS: ABG PCO2 17 mmHg (35-45); ABG PH 7.49 (7.35-7.45)
[2019-10-25 16:36] LABS: ABG HCO3 13 mmol/L (22-26); ABG PO2 47 mmHg (80-105); ABG TCO2 13
--- NOTE | 2019-10-25 17:14 | Progress Note ---
DATE: SUBJECTIVE: The patient has some worsening saturations. He was switched from Vapotherm to Airvo 60 L and 100%. He still has an intra-aortic balloon pump in place. He is having difficulty with urine output as well. PHYSICAL EXAMINATION: VITAL SIGNS: The blood pressure is 95/45 and the saturation is 99%. He is on an Airvo at 60 L with 100%. HEENT: No facial swelling or erythema. LYMPHATIC: No submandibular, cervical, or supraclavicular adenopathy. CARDIAC: Regular rate and rhythm with normal S1, S2. LUNGS: Auscultation of lungs reveals crackles and rhonchi bilaterally. ABDOMEN: Soft, nontender. There is no rebound or guarding. LABORATORY DATA: Platelet count is 41 and hemoglobin is 10. The white blood cell count 4.88. BUN to creatinine ratio is 73 to 3.27. Carbon dioxide is 14. Troponin I is 58.7. RADIOGRAPHIC DATA: Chest x-ray shows cardiomegaly with pulmonary edema. IMPRESSION: 1. Cardiogenic shock. 2. Acute on chronic systolic congestive heart failure. 3. Acute respiratory failure. 4. Acute renal failure. 5. Thrombocytopenia. 6. Anterior wall myocardial infarction. 7. Metabolic acidosis. PLAN: 1. Restart Precedex for sedation. 2. Continue intra-aortic balloon pump and dopamine. 3. Continue Airvo. 4. Monitor creatinine. The patient may require dialysis or continuous renal replacement therapy. 5. Prognosis remains poor. Tadeo Romero MD LM/MARISA /[id number]
[2019-10-25] MEDS ORDERED: CEFEPIME 1GM/NS 0.9% 50 ML 50 ML IV SCH (19:30)
--- NOTE | 2019-10-25 19:55 | Consultation ---
DATE OF CONSULTATION: HISTORY OF PRESENT ILLNESS: Mr. Parker is an 84-year-old white male, comes in with chest pain and not feeling well, shortness of breath. The patient has history of shoulder surgery, total hip replacement, hypertension. The patient has history of osteoarthritis. PAST SURGICAL HISTORY: As above. ALLERGIES: NKA. SOCIAL HISTORY: There is no smoking, drug abuse, or alcohol abuse. FAMILY HISTORY: Hypertension. The patient comes in on 10/22. The patient was seen by Pulmonary and seen by Cardiology. He was diagnosed with myocardial infarction. I was asked to see him today. The patient has history of chronic kidney disease, anemia. Cardiac catheterization was planned. He was given amiodarone. I was asked to see him to make recommendation. LABORATORY DATA: His COVID-19 was negative. His sodium 138, potassium 4.7, creatinine of 2.77, went up to 3.27. His white count 4.88, hemoglobin of 10, hematocrit 30. The patient is currently on amiodarone. PHYSICAL EXAMINATION: GENERAL: He is currently in the intensive care. There is no fever since admission. HEENT: He is not icteric. NECK: Supple. CHEST: A few crackles. HEART: S1, S2. ABDOMEN: Soft. IMPRESSION: 1. Acute myocardial infarction. 2. Cardiogenic shock. 3. Acute renal failure. 4. Underlying chronic kidney disease. 5. probably secondary to cardiogenic shock. 6. Cardiomegaly. 7. Concerned about pneumonia, aspiration. We will put the patient on cefepime 1 g daily. 8. Thrombocytopenia. 9. Cardiac workup is in progress. Further recommendations to follow. MD LASHAWN Constantino/MARISA /[id number]
[2019-10-25] MEDS: DEXMEDETOMIDINE 200MCG/NS 50ML 50 ML IV PRN (21:27)
[2019-10-26] VITALS (26 sets, daily range): BP systolic 82–118; BP diastolic 39–88
[2019-10-26] MEDS: AMIODARONE HCL 360MG 200 ML IV SCH ×3 (00:41→21:53)
--- NOTE | 2019-10-26 01:01 | Progress Note ---
DATE: 10/25/2019 Nephrology Progress Note SUBJECTIVE: The patient was alert, awake and oriented during my examination. I had a long discussion with him about possible need DICTATION ENDED ABRUPTLY. MD SUZI Khan/MARISA /[id number]
--- NOTE | 2019-10-26 01:01 | Progress Note ---
DATE: 10/25/2019 SUBJECTIVE: I had a long discussion with the patient at bedside about his overall renal function. I have told him that his renal function has continued to decline and will likely benefit from some form of HD if his renal function does not improve. He is currently in cardiogenic shock. He is relatively stable. He is on significant amount of oxygen. He is not responding well to diuretics. He seems to have agreed with HD. I talked to him about HD and if he had any renal function at the [facility] and he reports he did not. He does not recall exactly 100%. LABORATORY DATA: Labs show CBC, white count 4.8, hemoglobin 10, hematocrit is 30, platelets of 41. Chemistry, sodium 138, potassium 4.7, chloride 110, bicarb 14, anion gap of 18. BUN 73, creatinine is 3.27, and glucose is 113. Calcium is 8.9. IMAGING STUDIES: Chest x-ray, cardiomegaly with pulmonary edema, worsening opacification of the right lung, which may represent superimposed infection. PHYSICAL EXAMINATION: VITAL SIGNS: Temperature is 98.5, pulse 102, respiratory rate was 28, blood pressure was 108/47, pulse ox was 96% on 40 L nasal cannula. GENERAL: He was on a facemask. He was in no acute distress. He was alert, oriented x3. PULMONARY: Face mass, mild crackles appreciated. Positive rales. CARDIOVASCULAR: Positive S1, S2. No murmurs, rubs, or gallops. GI: Abdomen is soft, nondistended, and nontender to palpation. Bowel sounds present. MUSCULOSKELETAL: Strength is 5/5 throughout. No evidence of any muscle deficits on examination. No weakness appreciated. NEUROLOGIC: Cranial nerves 2 through 12 grossly intact. No evidence of any neurological deficits on exam. SKIN: Intact. Warm to touch. Good cap refill. PSYCHIATRIC: Normal affect and mood. EXTREMITIES: No edema. Good range of motion throughout. IMPRESSION: 1. Acute myocardial infarction with an ST elevation myocardial infarction with an aortic balloon pump. 2. Acute kidney injury on chronic kidney disease, likely underlying acute tubular necrosis, multifactorial from underlying coronary artery disease, cervical intraepithelial neoplasia, as well as underlying hypotension. PLAN: At this time, I had a long discussion with the patient at bedside and I reviewed the renal ultrasound including the labs with the patient. The patient does not recall if [facility] We do not have any other records. At this time, he will likely end up on HD temporarily. I spoke with him very thoroughly and he seems to have agreed. I will continue with IV diuretics for now. I did repeat labs in the morning. I will put an MD to nurse for the nurse to call me with the labs in the morning. If his labs are worse with decreased urine output, the patient will need a temporary HD catheter and initiation of HD. The only issue is that his blood pressure is relatively low, which will complicate things. He will likely need to be on pressors to help clean in order for us to ultrafiltrate and to dialyze the patient very appropriately. I spoke with nursing staff and the patient and they verbalized understanding. MD SUZI Khan/MARISA /[id number]
[2019-10-26] MEDS ORDERED: NOREPINEPHRINE INJ 4MG/4ML 8 MG in DEXTROSE 5% 250ML 250 ML IV PRN (05:15)
--- NOTE | 2019-10-26 05:15 | NUR ---
05:15: Notified Dr. Javid Romero that pt's SBP in the 70s and augmented pressure low 80s, ordered to start Levo and order central line placement. Dede RN voiced will speak to Dr. Davidson regarding potential trialysis placement today and could use pigtail for pressor admin. Placed IR consult order for CVC insertion in case no trialysis cath will be placed. 05:20: Levo started @ 10mcg, pressure increased to low 100s
[2019-10-26] MEDS ORDERED: NOREPINEPHRINE 8 MG/D5W 250 ML 250 ML ONE (05:22)
[2019-10-26 06:20] LABS: BASOPHILS % 0.2 % (0.0-1.0); HEMOGLOBIN 10.4 g/dL (14.0-18.0); LYMPHOCYTES # (AUTO) 0.8 (1.0-3.2); MEAN CORPUSCULAR HEMOGLOBIN 31.5 pg (28-32); MEAN CORPUSCULAR HGB CONC 33.5 g/dL (31-35); MEAN CORPUSCULAR VOLUME 93.9 fL (81-99); MONOCYTES # (AUTO) 0.3 (0.2-0.8); MONOCYTES % 6.2 % (4.4-11.3); NEUTROPHILS # (AUTO) 4.1 (2.1-6.9); NEUTROPHILS % 76.5 % (38.7-80.0); RED CELL DISTRIBUTION WIDTH 16.7 % (11.7-14.4)
[2019-10-26 06:44] LABS: ALBUMIN 2.8 g/dL (3.5-5.0); ALBUMIN/GLOBULIN RATIO 0.7 (0.8-2.0); ANION GAP 24.2 mmol/L (8-16); CREATININE, SERUM 3.66 mg/dL (0.72-1.25); POTASSIUM 5.2 mmol/L (3.5-5.1)
[2019-10-26] MEDS: HEPARIN 25,000 UNIT 1,300 UNIT in DEXTROSE 5% 250ML 250 ML IV SCH (07:20)
[2019-10-26] MEDS: FUROSEMIDE INJ 10 MG/ML 4 ML VIAL IV SCH (09:00)
[2019-10-26] MEDS: METOPROLOL TARTRATE 25 MG TAB PO SCH ×2 (09:00→16:08)
--- NOTE | 2019-10-26 09:13 | Diagnostic Imaging Report ---
EXAMINATION: CHEST SINGLE (PORTABLE) INDICATION: Cardiogenic shock. COMPARISON: Multiple prior chest radiographs including most recent on 10/25/2019. FINDINGS: TUBES and LINES: None. LUNGS: Interval worsening of diffuse opacification of the right lung. Multifocal opacification of the left lung has also worsened. PLEURA: Small left pleural effusion. HEART AND MEDIASTINUM: The heart is enlarged, unchanged. There is atherosclerotic calcification of the thoracic aortic arch. BONES AND SOFT TISSUES: No acute osseous lesion. Soft tissues are unremarkable. UPPER ABDOMEN: No free air under the diaphragm. IMPRESSION: Cardiomegaly with worsening opacification of both lungs which may represent worsening pulmonary edema, ARDS and/or multifocal infection. Signed by: Bernabe Mace MD on 10/26/2019 9:10 AM
[2019-10-26 09:33] LABS: PLATELET COUNT 32 x10e3/uL (140-360)
[2019-10-26] MEDS ORDERED: LIDOCAINE HCL 1% LOCAL INJ 20 ML VIAL ONE (09:42)
[2019-10-26] MEDS: MIDODRINE HCL 5 MG TABLET PO SCH ×3 (10:56→21:52)
[2019-10-26] MEDS: SODIUM BICARBONATE 650 MG TAB PO SCH ×3 (10:56→21:52)
--- NOTE | 2019-10-26 12:09 | Diagnostic Imaging Report ---
EXAMINATION: CHEST XRAY LINE PLACEMENT INDICATION: Check line placement COMPARISON: Chest x-ray earlier today 10/26/2019. FINDINGS: TUBES and LINES: There has been interval placement of right-sided IJ central venous catheter which terminates in the distal SVC. LUNGS: No interval change in diffuse multifocal opacities of both lungs. PLEURA: No pleural effusion or pneumothorax. HEART AND MEDIASTINUM: The heart is enlarged, unchanged. There is atherosclerotic calcification of the thoracic aortic arch. BONES AND SOFT TISSUES: No acute osseous lesion. Soft tissues are unremarkable. UPPER ABDOMEN: No free air under the diaphragm. IMPRESSION: 1. Interval placement of right-sided IJ CVC which terminates in the distal SVC. 2. No interval change in radiographic appearance of the lungs. Signed by: Bernabe Mace MD on 10/26/2019 12:06 PM
[2019-10-26] MEDS ORDERED: HEPARIN 25,000 UNIT DRIP IV ONE (13:03)
--- NOTE | 2019-10-26 13:23 | NUR ---
INFECTIOUS DISEASE PROGRESS NOTE DR. RODRIGEZ HISTORY OF PRESENT ILLNESS: Mr. Parker is an 84-year-old white male, comes in with chest pain and not feeling well, shortness of breath. The patient has history of shoulder surgery, total hip replacement, hypertension. The patient has history of osteoarthritis. PAST SURGICAL HISTORY: As above. ALLERGIES: NKA. SOCIAL HISTORY: There is no smoking, drug abuse, or alcohol abuse. FAMILY HISTORY: Hypertension. The patient comes in on 10/22. The patient was seen by Pulmonary and seen by Cardiology. He was diagnosed with myocardial infarction. I was asked to see him today. The patient has history of chronic kidney disease, anemia. Cardiac catheterization was planned. He was given amiodarone. I was asked to see him to make recommendation. LABORATORY DATA: His COVID-19 was negative. His sodium 138, potassium 4.7, creatinine of 2.77, went up to 3.27. His white count 4.88, hemoglobin of 10, hematocrit 30. The patient is currently on amiodarone. PHYSICAL EXAMINATION: GENERAL: He is currently in the intensive care. There is no fever since admission. HEENT: He is not icteric. NECK: Supple. CHEST: A few crackles. HEART: S1, S2. ABDOMEN: Soft. IMPRESSION & PLAN: 1. Acute myocardial infarction. 2. Cardiogenic shock. 3. Acute renal failure. 4. Underlying chronic kidney disease. 6. Cardiomegaly. 7. Concerned about pneumonia, aspiration. -We will put the patient on cefepime 1 g daily. 8. Thrombocytopenia.
[2019-10-26] MEDS: FUROSEMIDE INJ 100 MG in SODIUM CHLORIDE 0.9% 100 ML 90 ML IV SCH (15:00)
[2019-10-26] MEDS: NOREPINEPHRINE 8 MG/D5W 250 ML 250 ML IV PRN ×2 (15:21→22:00)
--- NOTE | 2019-10-26 15:38 | Progress Note ---
DATE: 10/26/2019 Nephrology Progress Note SUBJECTIVE: The patient is very short of breath on high-flow and non-rebreather. I looked at his labs today and he has very minimal urine output. A temporary dialysis catheter was inserted and I am waiting for the dialysis nurse to call me for orders. Nursing staff called the dialysis company and they call me later today. PHYSICAL EXAMINATION: VITAL SIGNS: Temperature is 97.1, pulse 75, respiratory rate 25, blood pressure is 106/62, and pulse ox on 60% FiO2. GENERAL: Not in acute distress. He is awake, alert, and oriented on examination. He is on high-flow oxygen and non-rebreather. PULMONARY: He has some crackles appreciated throughout with some rhonchi. He is non-rebreather high-flow oxygen. CARDIOVASCULAR: Positive S1, S2. No murmurs, rubs, or gallops. GI: Abdomen is soft, nondistended, nontender to palpation. Bowel sounds present. MUSCULOSKELETAL: Strength is 5/5 throughout. No evidence of any muscle deficits on examination. No weakness appreciated. NEUROLOGIC: Cranial nerves II through XII are grossly intact. No evidence of any neurological deficits on exam. SKIN: Intact. Warm to touch. Good cap refill. PSYCHIATRIC: Normal affect and mood. EXTREMITIES: No edema. Good range of motion throughout. LABORATORY DATA: Labs show white count 5.3, hemoglobin 10, hematocrit 31, and platelets of 32. Chemistry; sodium 139, potassium 5.2, chloride 107, bicarb is 35, anion gap of 24, BUN 109, creatinine is 3.66. His glucose is 116. Calcium is 9. LFTs shows total bilirubin is 1.3, AST 717, ALT 657. Urinalysis; noted. Serologies; Coronavirus not detected. IMAGING STUDIES: Chest x-ray this morning shows worsening opacification of both lungs, which may represent worsening pulmonary edema, ARDS, and multifocal infection. IMPRESSION: 1. Acute myocardial infarction with severe heart failure with an aortic balloon pump. 2. Acute kidney injury on chronic kidney disease, likely secondary to ATN, multifactorial from coronary artery disease, contrast-induced nephropathy, and underlying hypotension. 3. Anion gap metabolic acidosis, secondary to renal failure. PLAN: At this time, a temporary HD catheter has been placed. Awaiting on the dialysis nurse to give me a call with orders. I will go ahead and place him on temporary Lasix drip 5 mg/hour. He is on Levophed now. We will go ahead and use Levophed to raise up his pressure in order for us to have increased ultrafiltration today. We will get albumin p.r.n. for blood pressure support. His labs were reviewed. The patient does need dialysis today. At this time, I discussed the plan of care with nursing staff and Pulmonary Critical Care. MD SUZI Khan/MODL /[id number]
[2019-10-26] MEDS ORDERED: HEPARIN SOD (PORCINE) 1000 UNIT/ML SDV IV PRN (16:30)
[2019-10-26] MEDS ORDERED: MANNITOL 25% 12.5GM/50 ML VIAL IV PRN (16:30)
[2019-10-26] MEDS ORDERED: SODIUM CHLORIDE 0.9% 1000ML 2,000 ML IV PRN (16:30)
[2019-10-26] MEDS ORDERED: SODIUM CHLORIDE 0.9% 250ML 500 ML IV PRN (16:30)
[2019-10-26] MEDS: ALBUMIN 25% 12.5GM 0.25 GM/ML BTL IV PRN ×2 (17:00→17:30)
[2019-10-26] MEDS: DEXMEDETOMIDINE 200MCG/NS 50ML 50 ML IV PRN ×2 (17:15→21:30)
--- NOTE | 2019-10-26 20:27 | NUR ---
Spoke to Dr. Davidson after dialysis was complete per MD order. Ordered to hold the Lasix gtt d/t pt being on pressors and unstable. Stated he may need dialysis tomorrow again. stated he will revaluate pt tomorrow
--- NOTE | 2019-10-26 20:37 | NUR ---
Dr. Javid Romero notified about pt going in and out of wide complex tachycardia/runs of vtach in the 180s, ordered to give 2 gm Magnesium.
[2019-10-26] MEDS ORDERED: MAGNESIUM SULFATE 2GM/50ML 50 ML IV ONE (20:45)
[2019-10-27] VITALS (19 sets, daily range): BP systolic 0–106; BP diastolic 0–75
[2019-10-27] MEDS: DEXMEDETOMIDINE 200MCG/NS 50ML 50 ML IV PRN ×5 (01:25→14:19)
[2019-10-27] MEDS: NOREPINEPHRINE 8 MG/D5W 250 ML 250 ML IV PRN (03:30)
[2019-10-27] MEDS ORDERED: HEPARIN 25,000 UNIT DRIP IV ONE ×2 (04:55→15:10)
[2019-10-27 06:02] LABS: BASOPHILS % 0.4 % (0.0-1.0); HEMATOCRIT 27.7 % (38.2-49.6); HEMOGLOBIN 9.5 g/dL (14.0-18.0); LYMPHOCYTES # (AUTO) 0.3 (1.0-3.2); LYMPHOCYTES % 3.8 % (18.0-39.1); MEAN CORPUSCULAR HEMOGLOBIN 33.9 pg (28-32); MEAN CORPUSCULAR HGB CONC 34.3 g/dL (31-35); MEAN CORPUSCULAR VOLUME 98.9 fL (81-99); MONOCYTES # (AUTO) 0.5 (0.2-0.8); RED CELL DISTRIBUTION WIDTH 17.3 % (11.7-14.4)
[2019-10-27 06:29] LABS: ANION GAP 33.9 mmol/L (8-16); CALCIUM 8.2 mg/dL (8.4-10.2); CREATININE, SERUM 3.88 mg/dL (0.72-1.25); POTASSIUM 4.9 mmol/L (3.5-5.1)
[2019-10-27] MEDS ORDERED: NOREPINEPHRINE INJ 4MG/4ML 16 MG in DEXTROSE 5% 250ML 234 ML IV PRN (07:15)
[2019-10-27] MEDS ORDERED: NOREPINEPHRINE 8 MG/D5W 250 ML 250 ML IV PRN (07:15)
[2019-10-27 07:33] LABS: PLATELET COUNT 24 x10e3/uL (140-360)
[2019-10-27] MEDS ORDERED: SODIUM BICARBONATE 8.4% INJ 50 ML SYR IV ONE (08:00)
--- NOTE | 2019-10-27 08:16 | NUR ---
Video Game Designer notified about pt's status by RN. Provided calming presence and blessing. Will follow up as able. [facility] O: [phone]
[2019-10-27] MEDS ORDERED: LORAZEPAM INJ 2 MG/ML VIAL IV ONE (08:30)
--- NOTE | 2019-10-27 08:32 | Diagnostic Imaging Report ---
EXAMINATION: CHEST SINGLE (PORTABLE) INDICATION: Balloon pump COMPARISON: Chest radiograph of 10/26/2019 FINDINGS: LINES/TUBES:Radiopaque marker of intra-aortic balloon pump is at the level of the talia (T7). Right IJ central venous catheter terminates in the superior vena cava. EKG leads overlie the chest. LUNGS:The lungs are well-inflated. Slight interval improvement in bilateral hazy airspace opacities. PLEURA:No pleural effusion or pneumothorax. MEDIASTINUM:The cardiomediastinal silhouette appears unchanged in size and shape. Cardiomediastinal silhouette is stably enlarged. BONES/SOFT TISSUES:No acute osseous injury. ABDOMEN:No free air under the diaphragm. IMPRESSION: Intra-aortic balloon pump with radiopaque marker at T7. Right IJ central venous catheter in the superior vena cava. Slight interval improvement in bilateral hazy airspace opacities. Signed by: Karri Newman MD on 10/27/2019 8:28 AM
[2019-10-27] MEDS: METOPROLOL TARTRATE 25 MG TAB PO SCH ×2 (08:37→15:16)
[2019-10-27] MEDS: MIDODRINE HCL 5 MG TABLET PO SCH ×2 (08:37→15:00)
[2019-10-27] MEDS: SODIUM BICARBONATE 650 MG TAB PO SCH ×2 (08:37→15:00)
--- NOTE | 2019-10-27 09:27 | Progress Note ---
DATE: SUBJECTIVE: The patient is desaturating into the mid 80s despite being on Airvo with L flow of 60 and 100% FiO2. His blood pressure is 80/40 while on Levophed at 24 mcg and dopamine at 16 mcg. He is on an intra-aortic balloon pump with one-to-one augmentation. PHYSICAL EXAMINATION: VITAL SIGNS: Blood pressure is 90/50 with a heart rate of 80 to 90. Saturation is 88%. The patient is on 60 L and 100% through the Airvo. No facial swelling or erythema. Oropharynx is normal. LYMPHATIC: Shows no submandibular, cervical, or supraclavicular adenopathy. CARDIAC: Reveals regular rate and rhythm with normal S1 and S2. LUNGS: Auscultation of lungs reveals rhonchorous breath sounds bilaterally. There is no wheezing. ABDOMEN: Soft and nontender. There is no rebound or guarding. EXTREMITIES: Shows no leg edema or calf tenderness. There is an intra-aortic balloon pump on the right side. LABORATORY DATA: BUN to creatinine ratio is 73 to 3.88 and the carbon dioxide is 11. The albumin is 2.8. RADIOGRAPHIC DATA: Chest x-ray shows bilateral infiltrates and ARDS. IMPRESSION: 1. Cardiogenic shock. 2. Acute on chronic systolic heart failure. 3. Acute renal failure. 4. Thrombocytopenia. 5. Anterior wall myocardial infarction. 6. Metabolic acidosis. PLAN: 1. Continue pressors and intra-aortic balloon pump. 2. Continue Airvo at maximum settings and consider BiPAP. 3. The patient received dialysis yesterday but has not responded well. 4. Give supplemental bicarbonate. 5. Prognosis is poor. 6. Case discussed with Cardiology, nursing, Respiratory and Internal Medicine. Greater than 35 minutes in direct critical care time. Tadeo Romero MD [facility] /[id number]
[2019-10-27 11:05] LABS: BAND NEUTROPHILS % (MANUAL) 4 %; LYMPHOCYTES % (MANUAL) 7 % (19-48); MONOCYTES % (MANUAL) 1 % (3.4-9.0); MYELOCYTES % (MANUAL) 1 % (0-0); NEUTROPHILS % (MANUAL) 87 % (40-74); NUCLEATED RED BLOOD CELLS 181
[2019-10-27 11:06] LABS: OVALOCYTES FEW
[2019-10-27 11:07] LABS: BURR CELLS SLIGHT; POLYCHROMASIA FEW
[2019-10-27 11:08] LABS: ANISOCYTOSIS SLIGHT; ELLIPTOCYTE, RBC SLIGHT; RBC MORPHOLOGY COMMENT ABNORMAL
[2019-10-27 11:10] LABS: PLATELET ESTIMATE MARKEDLY DECREASED; PLATELET MORPHOLOGY COMMENT FEW LARGE
[2019-10-27] MEDS: AMIODARONE HCL 360MG 200 ML IV SCH (14:16)
[2019-10-27] MEDS: FUROSEMIDE INJ 100 MG in SODIUM CHLORIDE 0.9% 100 ML 90 ML IV SCH (15:00)
[2019-10-27] MEDS: HEPARIN 25,000 UNIT 1,300 UNIT in DEXTROSE 5% 250ML 250 ML IV SCH (15:17)
--- NOTE | 2019-10-27 15:44 | Progress Note ---
DATE: 10/27/2019 Nephrology Progress Note SUBJECTIVE: The patient is deteriorating. He is on 2 max pressors, dopamine and Levophed. He is not doing well, very hypotensive. Currently, the patient does not have any family and his friend, who is making decisions on his behalf. It seems like they are leaning towards hospice. He is severely acidotic. He is not responsive. He is on significant amount of oxygen. PHYSICAL EXAMINATION: VITAL SIGNS: Temperature is 98.3, pulse 86, respiratory rate is 34, blood pressure is 86/53, and pulse ox is 96%. He is on nasal cannula, 60% FiO2. GENERAL: He is not responsive. He is on high-flow oxygen and face mask. CARDIOVASCULAR: Positive S1 and S2. No murmurs, rubs, or gallops appreciated. ABDOMEN: Soft, nondistended, and nontender to palpation. Bowel sounds present. MUSCULOSKELETAL: Unable to assess. NEUROLOGIC: Unable to assess. SKIN: Intact. Warm to touch. Good cap refill. PSYCHIATRIC: Unable to assess. He is very confused. EXTREMITIES: No edema. Good range of motion throughout. LABORATORY DATA: Show white count 7.1, hemoglobin 9.5, hematocrit is 27, and platelets of 24. His chemistry; sodium 136, potassium 4.9, chloride 96, bicarb 11, anion gap of 33, BUN is 73, creatinine is 3.88, and calcium is 8.2. Urine output is very minimal. IMAGING STUDIES: Chest x-ray shows intra-aortic balloon pump with radiopaque marker at T7. Right IJ central venous catheter in place. Slight interval improvement of bilateral hazy airspace opacities. IMPRESSION: 1. Acute myocardial infarction with severe systolic heart failure with intra-aortic balloon pump. 2. Acute kidney injury on chronic kidney disease, likely secondary to acute tubular necrosis, multifactorial from coronary artery disease, contrast-induced nephropathy, and underlying hypotension. 3. Anion gap metabolic acidosis secondary to renal failure. PLAN: At this time, the patient is not doing well at all. He did have dialysis yesterday with increased ultrafiltration with much improved. He is now maxed out on 2 pressors. It seems like he is actively dying. He is not responsive. He is on significant amount of oxygen. It seems like the family are leaning towards hospice services and palliative care has been consulted. Bicarbonate pushes have been given and we will continue following with the primary team. Otherwise, continue with same plan of care and monitor closely. In the event if he does improve, we will consider renal replacement therapy at this time. His overall prognosis seems to be very poor. MD SUZI Khan/MARISA /[id number]
--- NOTE | 2019-10-27 16:47 | NUR ---
NFECTIOUS DISEASE PROGRESS NOTE DR. RODRIGEZ day 4 HISTORY OF PRESENT ILLNESS: Mr. Parker is an 84-year-old white male, comes in with chest pain and not feeling well, shortness of breath. The patient has history of shoulder surgery, total hip replacement, hypertension. The patient has history of osteoarthritis. LABORATORY DATA: His COVID-19 was negative. His sodium 138, potassium 4.7, creatinine of 2.77, went up to 3.27. His white count 4.88, hemoglobin of 10, hematocrit 30. The patient is currently on amiodarone. PHYSICAL EXAMINATION: GENERAL: He is currently in the intensive care.non communicative intubated sedated There is no fever since admission. HEENT: He is not icteric. not pale NECK: Supple. CHEST: A few crackles. HEART: S1, S2. ABDOMEN: Soft. nt ext no edema IMPRESSION & PLAN: 1. Acute myocardial infarction. 2. Cardiogenic shock. 3. Acute renal failure. 4. Underlying chronic kidney disease. 6. Cardiomegaly. 7. Concerned about pneumonia, aspiration. -We will put the patient on cefepime 1 g daily. 8. Thrombocytopenia. family agreed with DNR PROGNOSIS IS GRIM
--- NOTE | 2019-10-27 17:49 | Progress Note ---
DATE: 10/27/2019 REQUESTED PHYSICIAN: Dr. Tiny Romero. REASON FOR NOTE: Coronary artery disease, multi-system organ failure. SUBJECTIVE: The patient has deteriorated. Currently on high dose dopamine and Levophed. Relatively hypotensive with those medications. He has been in renal failure and dialysis has been initiated. He is also severely acidotic and not responsive. The patient has been DNR and apparently does not have a family, but his friends are looking in on him. REVIEW OF SYSTEMS: Unobtainable because of because the patient is not verbal. PHYSICAL EXAMINATION: VITAL SIGNS: Temperature 99. Pulse 70 and regular, respirations 34. O2 saturation 96%. Nasal cannula with FiO2 of 60%. GENERAL. Not responsive. CARDIAC: Regular rate and rhythm. Normal S1, S2. No rub or murmur. LUNGS: Coarse crackles bilaterally. ABDOMEN: Soft, distended. MUSCULOSKELETAL: No cyanosis, clubbing, or edema. NEUROLOGIC: Not responsive. LABORATORIES: WBC 7.1 and hemoglobin 9.5. Sodium 136, potassium 4.9, creatinine 3.8, and calcium 8.2. Minimal urine output. Chest x-ray shows intra-aortic balloon pump was appropriately placed. IMPRESSION: Acute myocardial infarction and subsequent deterioration. He is not a candidate for coronary bypass grafting at this point, and patient is being made DNR. Chun Álvarez MD [facility] /[id number]
--- NOTE | 2019-10-27 23:07 | NUR ---
Body released to [employer]
--- NOTE | 2019-10-28 09:07 | Discharge Summary ---
EXPIRATION NOTE CONSULTANTS: 1. Dr. Javid Romero. 2. Dr. Tadeo Romero. FINAL DIAGNOSES: 1. Expiration on October 27, 2019. Please review the expiration note pronounced by Dr. Tadeo Romero. 2. Acute respiratory failure secondary to acute myocardial infarction. 3. Three-vessel coronary disease with status post cardiac catheterization. No intervention since the patient was needing coronary artery bypass graft planning. 4. Acute congestive heart failure, systolic with ejection fraction of 15%. 5. Hypotensive shock, required balloon pump. 6. Cardiac arrhythmia. SUMMARY: The patient was an 84 years male with no previous coronary disease, but the patient did have COPD. He was a smoker. The patient came to the hospital with respiratory distress and with pulmonary edema and congestive heart failure, found to have the patient had an acute NE. He immediately underwent cardiac catheterization showed that he had triple-vessel disease. At the same time, his blood pressure was also low. He went into hypotensive shock secondary to severe systolic dysfunction and congestive heart failure with ejection fraction around 15-20%. The patient continued to be hypotensive due to cardiac injury. He required balloon pump and subsequently maxed out all his pressure support. The patient was on high-flow oxygen. Even though his oxygen saturation was stable, his blood pressure continued to drop in light of the balloon pump. He was maxed out with multiple pressor support bobo in ICU. The patient subsequently while in the intensive care unit with Critical Care, Dr. Tadeo Romero and lockstitch collar setter, Dr. Javid Romero on case. He went into respiratory failure and cardiac failure and also shock kidney as well. The patient did not tolerate much hemodialysis. The patient was , pronounced by Dr. Tadeo Romero. MD GAYATRI Nova/RANDYL /[id number]
== END 2019-10-27 23:30 | disposition expired | DRG 270 ==
LOC: ER 15:45 → ERHOLD 17:00 → ICU 10-24 16:04
PROVIDERS: ADMIT Internal Medicine; ATTEND Internal Medicine
PROC: 4A023N7 Measurement of Cardiac Sampling and Pressure, Left Heart, Percutaneous Approach (ICD-10-PCS; principal; 2019-10-24)
PROC: 5A02210 Assistance with Cardiac Output using Balloon Pump, Continuous (ICD-10-PCS; 2019-10-24)
PROC: B2111ZZ Fluoroscopy of Multiple Coronary Arteries using Low Osmolar Contrast (ICD-10-PCS; 2019-10-24)
PROC: 02HV33Z Insertion of Infusion Device into Superior Vena Cava, Percutaneous Approach (ICD-10-PCS; 2019-10-24)
PROC: B548ZZA Ultrasonography of Superior Vena Cava, Guidance (ICD-10-PCS; 2019-10-24)
PROC: 5A1D70Z Performance of Urinary Filtration, Intermittent, Less than 6 Hours Per Day (ICD-10-PCS; 2019-10-26)
PROC: 3E043XZ Introduction of Vasopressor into Central Vein, Percutaneous Approach (ICD-10-PCS; 2019-10-26)
PROC: 02HV33Z Insertion of Infusion Device into Superior Vena Cava, Percutaneous Approach (ICD-10-PCS; 2019-10-26)
PROC: B548ZZA Ultrasonography of Superior Vena Cava, Guidance (ICD-10-PCS; 2019-10-26)
DX: I21.09 ST elevation (STEMI) myocardial infarction involving other coronary artery of anterior wall (principal); N17.0 Acute kidney failure with tubular necrosis; J96.01 Acute respiratory failure with hypoxia; I50.23 Acute on chronic systolic (congestive) heart failure; J69.0 Pneumonitis due to inhalation of food and vomit; N17.9 Acute kidney failure, unspecified; E87.2 Acidosis; I12.9 Hypertensive chronic kidney disease with stage 1 through stage 4 chronic kidney disease, or unspecified chronic kidney disease; N18.9 Chronic kidney disease, unspecified; D63.1 Anemia in chronic kidney disease; Z88.0 Allergy status to penicillin; J44.9 Chronic obstructive pulmonary disease, unspecified; Z87.891 Personal history of nicotine dependence; Z98.890 Other specified postprocedural states; Z82.49 Family history of ischemic heart disease and other diseases of the circulatory system; R57.0 Cardiogenic shock; I25.10 Atherosclerotic heart disease of native coronary artery without angina pectoris; Z11.59 Encounter for screening for other viral diseases; N14.1 Nephropathy induced by other drugs, medicaments and biological substances; T50.8X5A Adverse effect of diagnostic agents, initial encounter; Z66 Do not resuscitate; I48.91 Unspecified atrial fibrillation
CPT/HCPCS: 33970; 36415; 36556; 36600; 71045; 74470; 76770; 76937; 80048; 80053; 80061; 81001; 82550; 82553; 82805; 83880; 84484; 85025; 85610; 85730; 86704; 86705; 86706; 87340; 90962; 93005; 93306; 93454; 99152; 99153; 99284; C1766; C1769; C1887; C2630; J0583; J0692; J1644; J1650; J1940; J2001; J2060; J2150; J2250; J3010; J3475; J7030; Q9967; U0002